=== PATIENT | male | born 1970 | race Caucasian/White ===

== ENCOUNTER 2023-07-13 03:44 | Inpatient (IN) | payer SELFPAY ==
[~2023-07-13] VITALS: Ht 177.8 cm; Wt 62.3 kg
[2023-07-13] VITALS (8 sets, daily range): BP systolic 146–169; BP diastolic 0–105; PULSE 64–104; RESP 12–19; TEMP 98.1–98.6; O2SAT 90–99
[2023-07-13] MEDS ORDERED: SODIUM CHLORIDE 0.9% 1,000 ML IVB ONE (04:00)
[2023-07-13] MEDS ORDERED: LORazepam 2MG/ML-1ML VIAL IV ONE ×2 (04:00)
[2023-07-13] MEDS ORDERED: LORazepam 2MG/ML-1ML VIAL ONE (04:03)
[2023-07-13 04:36] LABS: Basophils # (auto) 0 10 ^3/uL (0-0.2); Eosinophils # (auto) 0 10 ^3/uL (0-0.8); Eosinophils % (auto) 0.3 % (0.0-7.0); Hemoglobin 12.3 g/dL (13.5-17.5); Lymphocytes # (auto) 0.9 10 ^3/uL (0.4-5.4); Nucleated Red Blood Cells % 0.1 %
[2023-07-13 04:38] LABS: Basophils % (auto) 0.8 % (0.0-2.0); Hematocrit 36.7 % (41.0-53.0); Lymphocytes % (auto) 14.4 % (10.0-50.0); Mean Corpuscular Hemoglobin 35.9 pg (28.0-32.0); Mean Corpuscular Hgb Conc. 33.6 g/dL (32.0-36.0); Mean Corpuscular Volume 106.9 fL (80.0-100.0); Monocytes # (auto) 0.6 10 ^3/uL (0-1.3); Monocytes % (auto) 10.1 % (0.0-12.0); Neutrophils # (auto) 4.4 10 ^3/uL (1.6-8.6); Neutrophils % (auto) 74.4 % (37.0-80.0); Red Blood Cells 3.43 10^6/uL (4.5-5.90); Red Cell Distribution Width 14.1 % (11.8-14.3); White Blood Cell 5.9 10^3/uL (4.4-10.8)
[2023-07-13] MEDS ORDERED: LABETALOL HCL 5 MG/ML 4ML SYRINGE IV ONE ×2 (04:45→06:00)
[2023-07-13 04:52] LABS: Partial Thromboplastin Time 24.6 SEC (24.5-34.5); Prothrombin Time 10.5 sec (9.3-11.8)
[2023-07-13 04:56] LABS: Phenytoin (Dilantin) < 2.0 ug/mL (10-20); Valproic Acid (Depakene) < 3.0 ug/mL (50-100)
[2023-07-13 04:59] LABS: Alanine Aminotransferase 58 U/L (7-40); Albumin 4.7 g/dL (3.2-4.8); Alkaline Phosphatase 145 U/L (46-116); Anion Gap 20 (5-15); Aspartate Aminotransferase 174 U/L (13-40); BUN/Creatinine Ratio 5.7 (10.0-20.0); Bilirubin, Total 0.8 mg/dL (0.2-1.0); Blood Alcohol 3.2 mg/dL (<10); Blood Urea Nitrogen 5 mg/dL (9-23); Calcium 9.4 mg/dL (8.7-10.4); Carbon Dioxide 17 mmol/L (20-30); Chloride 100 mmol/L (98-107); Glucose 185 mg/dL (74-106); Magnesium 1.6 mg/dL (1.6-2.6); Potassium 3.1 mmol/L (3.5-5.1); Sodium 137 mmol/L (136-145); Total Protein 8.5 g/dL (5.7-8.2)
[2023-07-13] MEDS ORDERED: hydrALAZINE HCL 20 MG/ML VL IV ONE (06:00)
[2023-07-13] MEDS: SODIUM CHLORIDE 0.9% 1,000 ML IV SCH ×2 (06:30→23:10)
[2023-07-13] MEDS ORDERED: IBUPROFEN 600 MG TAB PO PRN (06:30)
[2023-07-13] MEDS ORDERED: ONDANSETRON HCL 4 MG/2 ML VIAL IV PRN (06:30)
[2023-07-13] MEDS ORDERED: hydrALAZINE HCL 20 MG/ML VL IV PRN (06:30)
[2023-07-13] MEDS ORDERED: DOCUSATE SOD 100 MG CAP PO PRN (06:30)
[2023-07-13] MEDS ORDERED: HYDROcodone-ACET 5/325MG TAB PO PRN (07:00)
[2023-07-13] MEDS: POTASSIUM CHL 20MEQ/100ML 100 ML IV SCH ×2 (07:08→08:51)
[2023-07-13] MEDS ORDERED: MORPHINE SULFATE INJ 2 MG/ml SYRG IV PRN (07:15)
[2023-07-13] MEDS ORDERED: NITROGLYCERIN 0.4 MG SL TAB SL PRN (07:15)
[2023-07-13 07:43] LABS: Acetaminophen < 2.0 UG/ML (10.0-20.0)
[2023-07-13 07:46] LABS: Salicylate < 3.0 mg/dL (2.8-20.0)
[2023-07-13 08:20] LABS: Urine Bacteria FEW /hpf (None Seen); Urine Blood 1+ /uL (Negative); Urine Clarity Clear (Clear); Urine Color Colorless (Yellow); Urine Protein, UAD 2+ (Negative); Urine Urobilinogen Normal (Negative); Urine WBC <1 /hpf (0 - 3)
[2023-07-13 08:28] LABS: Amphetamine Screen, Urine Neg (NEGATIVE); Barbiturate Scree,Urine Neg (NEGATIVE); Benzodiazephine Screen, Urine Neg (NEGATIVE); Cannabinoid Screen, Urine Pos (NEGATIVE); Cocaine Screen, Urine Neg (NEGATIVE); Opiate Scree,Urine Neg (NEGATIVE); Phencyclidine Screen, Urine Neg (NEGATIVE)
[2023-07-13] MEDS ORDERED: LORazepam 2MG/ML-1ML VIAL IV PRN (08:30)
[2023-07-13] MEDS: amLODIPine BESYLATE 5 MG TAB PO SCH (10:29)
[2023-07-14 05:05] VITALS: BP 139/89; PULSE 115; RESP 15; TEMP 98; O2SAT 97
[2023-07-14 06:10] LABS: Alanine Aminotransferase 46 U/L (7-40); Alkaline Phosphatase 87 U/L (46-116); Anion Gap 11 (5-15); Blood Urea Nitrogen 6 mg/dL (9-23); Calcium 9.4 mg/dL (8.5-10.1); Carbon Dioxide 28 mmol/L (20-30); Chloride 92 mmol/L (98-107); Glucose 98 mg/dL (74-106)
[2023-07-14 06:11] LABS: Albumin 4.6 g/dL (3.2-4.8); Aspartate Aminotransferase 92 U/L (13-40); Bilirubin, Total 2.2 mg/dL (0.2-1.0); Total Protein 8.4 g/dL (5.7-8.2)
[2023-07-14 06:22] LABS: Sodium 131 mmol/L (136-145)
[2023-07-14 06:24] LABS: Potassium 2.8 mmol/L (3.5-5.1)
[2023-07-14 06:38] LABS: Basophils # (auto) 0 10 ^3/uL (0-0.2); Eosinophils # (auto) 0 10 ^3/uL (0-0.8); Eosinophils % (auto) 0.2 % (0.0-7.0); Lymphocytes # (auto) 0.5 10 ^3/uL (0.4-5.4); Monocytes # (auto) 0.6 10 ^3/uL (0-1.3); Nucleated Red Blood Cells % 0.1 %
[2023-07-14 06:42] LABS: Basophils % (auto) 0.4 % (0.0-2.0); Hematocrit 38.6 % (41.0-53.0); Hemoglobin 13.3 g/dL (13.5-17.5); Lymphocytes % (auto) 8.1 % (10.0-50.0); Mean Corpuscular Hemoglobin 36.1 pg (28.0-32.0); Mean Corpuscular Hgb Conc. 34.5 g/dL (32.0-36.0); Mean Corpuscular Volume 104.7 fL (80.0-100.0); Monocytes % (auto) 9.7 % (0.0-12.0); Neutrophils # (auto) 5.1 10 ^3/uL (1.6-8.6); Neutrophils % (auto) 81.6 % (37.0-80.0); Red Blood Cells 3.68 10^6/uL (4.5-5.90); Red Cell Distribution Width 13.7 % (11.8-14.3); White Blood Cell 6.2 10^3/uL (4.4-10.8)
[2023-07-14] MEDS ORDERED: POTASSIUM CHL 20 Meq TABLET PO ONE ×2 (06:45→15:15)
[2023-07-14 08:00] VITALS: BP 169/100; PULSE 86; PULSE 94; RESP 20; TEMP 36.7; O2SAT 98
[2023-07-14] MEDS: POTASSIUM CHL 20MEQ/100ML 100 ML IV SCH ×3 (08:07→10:53)
[2023-07-14 08:34] VITALS: BP 156/107; PULSE 86; RESP 20; TEMP 98.4; O2SAT 98
[2023-07-14] MEDS: amLODIPine BESYLATE 5 MG TAB PO SCH (10:49)
[2023-07-14 13:00] VITALS: BP 152/106; PULSE 87; RESP 18; TEMP 98.3; O2SAT 99
[2023-07-14] MEDS ORDERED: AML5T PO (14:39)
[2023-07-14] MEDS ORDERED: POTASSIUM CHL 20 Meq TABLET PO SCH (14:45)
[2023-07-14 15:25] VITALS: BP 156/107; PULSE 94; TEMP 36.8
[2023-07-16 11:18] LABS: Hepatitis B Core Total AB Negative (Negative)
[2023-07-16 12:23] LABS: Hepatitis A Total Antibody Positive (Negative); Hepatitis B Surface Antibody Negative (Negative); Hepatitis B Surface Antigen Negative (Negative); Hepatitis C Antibody Negative (Negative)
== END 2023-07-14 16:00 | disposition home or self-care (01) | DRG 304 ==
LOC: ER 03:44 → EDBD 03:44 → TELE 07:04 → TELE-WESTW 09:36
PROVIDERS: ADMIT Nurse Practitioner Family; ATTEND Internal Medicine
DX: I16.0 Hypertensive urgency (principal); G92.8 Other toxic encephalopathy; F10.231 Alcohol dependence with withdrawal delirium; E87.6 Hypokalemia; I10 Essential (primary) hypertension; R56.9 Unspecified convulsions; R79.89 Other specified abnormal findings of blood chemistry
CPT/HCPCS: 36415; 70450; 71045; 76705; 80053; 80164; 80185; 80307; 80320; 80329; 81001; 82140; 82962; 83036; 83735; 85025; 85610; 85730; 86704; 86706; 86708; 86803; 87340; 93005; 96374; 96375; 96376; G0378; J3480; J3490; J7060